=== PATIENT | female | born 1940 | race Caucasian/White ===

== ENCOUNTER → 2018-02-10 | Outpatient (CLI) | payer MEDICARE ==
--- NOTE | 2018-02-11 07:47 | Diagnostic Imaging Report ---
PROCEDURE: BONE DXA DUAL ENERGY COMPARISON:None. INDICATIONS:AGE RELATED OSTEOPORSIS FINDINGS:Evaluation of the left hip and lumbar spine was performed utilizing DEXA Hologic bone densitometer. The study is technically adequate. The patient does not have any known previous non-traumatic fractures or other risk factors. Left hip total bone mineral density: 0.611 gm/cm2, T-score is -2.7, Z-score is -0.8. Lumbar spine total bone mineral density: 0.728 gm/cm2, T-score is -3.2, Z-score is -0.6. Impression: 1. Bone mineral density of the left hip classified as osteoporosis, fracture risk is increased. 2. Bone mineral density of the lumbar spine classified as osteoporosis, fracture risk is increased. The patient's fracture risk is compared to an age-matched control. Medical evaluation for secondary causes of low bone mineral density may be appropriate. Correlate clinically for the necessity and timing of the next bone mineral density study. National Osteoporosis Foundation recommendations: Initial therapy to reduce fracture risk in postmenopausal women with -BMD t-scores below -2.0 by central DXA with no risk factors -BMD t-scores below -1.5 by central CXA with one or more risk factors (first deg relative with hip fracture, prior personalfracture, low body weight, smoking) -A prior vertebral or hip fracture AACE n(Clinical Endocrinology) recommends treating the following: Postmenopausal women who have osteoporosis as diagnosed by fragility fractures or t-score -2.5 or below. Postmenopausal women who have risk factors (including hx of hip fracture, low body weight, smoking, risk of falling, high bone turnover, advancing age) and borderline low BMD T-scores of -1.5 or below Adequate intake of calcium (at least 1200mg/day) and vitamin D (400-800IU/day). Regular weight bearing and muscle-strengthening exercises Avoid smoking and excessive alcohol Dung Norton D.O. Dictated by: Dung Norton D.O. on 02/11/2018 at 7:55 Electronically approved by: Dung Norton D.O. on 02/11/2018 at 7:55
== END ==
LOC: DX 08:02
PROVIDERS: ATTEND Family Medicine
DX: Z12.31 Encounter for screening mammogram for malignant neoplasm of breast (principal); Z13.820 Encounter for screening for osteoporosis
CPT/HCPCS: 77067; 77080

== ENCOUNTER → 2018-10-06 | Outpatient (CLI) | payer MEDICARE ==
--- NOTE | 2018-10-06 10:57 | Diagnostic Imaging Report ---
EXAMINATION: MRI of the brain without contrast. HISTORY: Frequent falls, ataxia, difficulty walking, headaches on the right side. COMPARISON: None. TECHNIQUE: Sagittal T2; axial DWI, T2, FLAIR, T1-IR, T2 gradient echo; coronal FLAIR. IMAGE QUALITY: Adequate. FINDINGS: Parenchyma: 1. Few scattered and multiple incompetent periventricular white matter T2 hyperintense foci, most likely nonspecific chronic microvascular ischemic changes. 2. No mass, hemorrhage, acute or chronic infarcts. Skull: Unremarkable. Vessels: Expected flow voids present in the major arteries and dural sinuses. Extra-axial spaces: No abnormal signal intensity or mass effect. Brain volume: Within normal limits for age, particularly no disproportionate cerebellar atrophy is seen. Ventricles: No hydrocephalus or displacement. Foramen magnum: Unremarkable. Sella: Unremarkable. Paranasal / mastoid sinuses: No significant inflammatory disease. IMPRESSION: Mild chronic microvascular ischemic changes, otherwise no intracranial abnormalities. Signed by: Dr. Veronica Bean M.D. on 10/06/2018 10:54 AM
== END ==
LOC: MRI 09:31
PROVIDERS: ATTEND Family Medicine
DX: R27.0 Ataxia, unspecified (principal)
CPT/HCPCS: 70551

== ENCOUNTER → 2018-11-01 | Outpatient (CLI) | payer MEDICARE ==
[~2018-11-01] MED LIST: DIATRIZOATE MEGL/DIATRIZOA SOD 30 ML BTL PO ONE; IOPAMIDOL 370 MG/ML 200 ML INFUS..BTL INJ ONE; SODIUM CHLORIDE 0.9% 50ML 50 ML ONE
[2018-11-01 11:20] LABS: BLOOD UREA NITROGEN 17 mg/dL (7-26); BUN/CREATININE RATIO 22 (6-25); CREATININE, SERUM 0.79 mg/dL (0.57-1.11); EST GLOMERULAR FILTRATION RATE > 60 ML/MIN (60-)
--- NOTE | 2018-11-01 12:07 | Diagnostic Imaging Report ---
EXAMINATION: CT of the abdomen and pelvis with contrast. TECHNIQUE: Spiral CT images of the abdomen and pelvis were performed from the lung bases to the lesser trochanters after the intravenous administration of 100 cc Isovue-370. Coronal and sagittal reformatted images were obtained. COMPARISON: None. CLINICAL HISTORY:Abdominal pain, constipation DISCUSSION: ABDOMEN/PELVIS: LOWER THORAX:Unremarkable. HEPATOBILIARY: Subcentimeter hypoattenuating lesion in segment 7, too small to further characterize but likely represent a small cyst. Additional lesion in segment 5, also too small to further characterize. No intrahepatic biliary ductal dilatation. The gallbladder is unremarkable. SPLEEN: No splenomegaly. PANCREAS: No focal masses or ductal dilatation. ADRENALS: No adrenal nodules. KIDNEYS/URETERS: Subcentimeter hypoattenuating lesion in the lower pole of the right kidney too small to further characterize but likely to represent a small cyst. No hydronephrosis, calculi, or gross mass lesion. PELVIC ORGANS/BLADDER: The urinary bladder is markedly distended but otherwise unremarkable. There is a 3 cm ovoid, nonenhancing fluid attenuation structure (5-10 Hounsfield units) along the right posterolateral margin of the urinary bladder. The uterus is not identified and has presumably been removed. PERITONEUM/RETROPERITONEUM: No free air or fluid. LYMPH NODES: No pelvic sidewall, retroperitoneal, or mesenteric lymphadenopathy. VESSELS: Atherosclerotic calcification of the abdominal aorta, major branch vessels, and iliac arterial systems, without aneurysmal dilatation. Portal vein, splenic vein, and central superior mesenteric vein are patent. GI TRACT: The large bowel shows no distention or wall thickening. Gas and fecal material are noted throughout the appendix is unremarkable. The stomach is collapsed with prominence of the rugal folds. No small bowel dilatation to suggest obstruction. BONES AND SOFT TISSUE: No osseous destructive lesions. Multilevel degenerative disc changes and facet arthropathy of the lumbar spine. Vertebroplasty changes of L1 with residual moderate loss of height. Small fat-containing umbilical hernia. IMPRESSION: No acute intra-abdominal or pelvic CT abnormalities. 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 Atherosclerotic vascular disease. Signed by: Dr. Jeremiah Rahman M.D. on 11/01/2018 12:04 PM
== END ==
LOC: CT 09:20
PROVIDERS: ATTEND Internal Medicine Gastroenterology
DX: R10.30 Lower abdominal pain, unspecified (principal)
CPT/HCPCS: 36415; 74177; 82565; 84520; Q9967

== ENCOUNTER → 2018-11-19 | Day surgery (SDC) | payer MEDICARE ==
[2018-11-10 15:13] LABS: BASOPHILS # (AUTO) 0.1 (0.0-0.1); BASOPHILS % 1.1 % (0.0-1.0); EOSINOPHILS # (AUTO) 0.1 (0.0-0.4); EOSINOPHILS % 2.5 % (0.0-6.0); HEMATOCRIT 35.4 % (34.2-44.1); HEMOGLOBIN 12.5 g/dL (12.0-16.0); LYMPHOCYTES # (AUTO) 2.2 (1.0-3.2); MEAN CORPUSCULAR HGB CONC 35.3 g/dL (31-35); MEAN CORPUSCULAR VOLUME 87.8 fL (81-99); MONOCYTES # (AUTO) 0.4 (0.2-0.8); MONOCYTES % 7.6 % (4.4-11.3); NEUTROPHILS # (AUTO) 2.7 (2.1-6.9); NEUTROPHILS % 49.4 % (38.7-80.0); PLATELET COUNT 397 x10e3/uL (140-360); RED BLOOD COUNT 4.03 x10e6/uL (3.6-5.1); RED CELL DISTRIBUTION WIDTH 13.1 % (11.7-14.4)
[~2018-11-19] MED LIST changes: +ALENDRONATE SOD70 MG PO; +CALTRATE-600 W1 EACH PO; +CLARITIN10 MG PO; -DIATRIZOATE MEGL/DIATRIZOA SOD 30 ML BTL PO ONE; +FENOFIBRATE145 MG PO; +FENTANYL CITRATE/PF 100MCG/2 ML INJ ONE; +FUROSEMIDE40 MG PO; +GLIMEPIRIDE2 MG PO; +HYOSCYAMINE 0.125 MG TAB ONE; -IOPAMIDOL 370 MG/ML 200 ML INFUS..BTL INJ ONE; +KETAMINE HCL INJ 50 MG/ML 10 ML VIAL ONE; +LIDOCAINE HCL 2% LOCAL INJ 5 ML SDV VIAL INJ ONE; +LOSARTAN-HCTZ1 EAC1 PO; +POTASSIUM CHLO10 MEQ PO; +PRILOSEC OTC20 MG PO; +PROPOFOL IV EMULSION 10 MG/ML 50 ML VIAL ONE; -SODIUM CHLORIDE 0.9% 50ML 50 ML ONE; +TYLENOL PO
[2018-11-19 11:12] VITALS: BP 128/58
--- NOTE | 2018-11-19 14:42 | Operative Report ---
DATE OF PROCEDURE: 11/19/2018 SURGEON: William Toscano MD PROCEDURE: Colonoscopy and polypectomy. INDICATIONS FOR COLONOSCOPY: Surveillance colonoscopy, personal history of colon polyps, constipation, rectal pain. MEDICATION: The patient was done under MAC, please see anesthesiologist's note. PROCEDURE IN DETAIL: With the patient in left lateral decubitus position, flexible fiberoptic Olympus colonoscope was inserted into the rectum with ease and advanced all the way to the cecum. One polyp was removed per cold snare from the cecum. The scope was then withdrawn slowly and mucosa overlying the ascending, transverse, and descending grossly appeared to be within normal limits. One polyp was snared from the sigmoid colon. The rectum appeared to be within normal limits. The scope was then retroflexed into the distal rectum and small internal hemorrhoids were noted, none of which was actively bleeding. The scope was then straightened out, it was subsequently withdrawn. The patient tolerated procedure well. IMPRESSION: 1. Cecal polyp, removed per cold snare polypectomy. 2. Sigmoid colon polyp, removed poor cold snare polypectomy. 3. Internal hemorrhoids, none actively bleeding. PLAN: Follow up histology. Initiate high-fiber, low-fat diet. Initiate high-fiber supplement. Start VSL#3 one p.o. daily. No followup colonoscopy is warranted in this patient. William Toscano MD [facility] [place] /[id number] cc: Reji Betancourt MD
--- OUTSIDE RECORDS SUMMARY | 2018-11-21 12:12 | XMS REPORT ---
Author Author [facility] Address Unknown Phone Unavailable Care Team Providers Care Wire Photo Operator Name Role Phone ZACKERY ORTIZ Unavailable Unavailable JOHN CHANDLER Unavailable Unavailable Payers Payer Name Policy Type Policy Number Effective Date Expiration Date Problems This patient has no known problems. Allergies, Adverse Reactions, Alerts Allergy Name Allergy Type Status Severity Reaction(s) Onset Date Inactive Date Treating Clinician Comments Penicillins DA Active U 2018-01-18 00:00:00 Cephalosporins DA Active U 2018-01-18 00:00:00 aspirin DA Active U 2018-01-18 00:00:00 Penicillins DA Active U 2016-09-18 00:00:00 Cephalosporins DA Active U 2016-09-18 00:00:00 aspirin DA Active U 2016-09-18 00:00:00 Medications This patient has no known medications. Results Test Description Test Time Test Comments Text Results Atomic Results Result Comments CT ABDOMEN/PELVIS W 2018-11-01 11:53:00 [facility] [address] [place] [address] Patient Name: DEEP VICKERS MR #: [id number] : 1940 Age/Sex: 78/F Req #: [id number] Adm Physician: Ordered by: ZACKERY ORTIZ MD Report #: [id number] Location: [place] Room/Bed: Procedure: [id number] CT/CT ABDOMEN/PELVIS W Exam Date: 11/01/18 Exam Time: 1130 REPORT STATUS: Signed EXAMINATION: CT of the abdomen and pelvis with contras t. TECHNIQUE: Spiral CT images of the abdomen and pelvis were performed from the lung bases to the lesser trochanters after the intravenous administration of 100 cc Isovue-370. Coronal and sagittal reformatted images were obtained. COMPARISON: None. CLINICAL HISTORY:Abdominal pain, constipation DISCUSSION: ABDOMEN/PELVIS: LOWER THORAX:Unremarkable. HEPATOBILIARY: Subcentimeter hypoattenuating lesion in segment 7, too small to further characterize but likely represent a small cyst. Additional lesion in segment 5, also too small to further characterize. No intrahepatic biliary ductal dilatation. The gallbladder is unremarkable. SPLEEN: No splenomegaly. PANCREAS: No focal masses or ductal dilatation. ADRENALS: No adrenal nodules. KIDNEYS/URETERS: Subcentimeter hypoattenuating lesion in the lower pole of the right kidney too small to further characterize but likely to represent a small cyst. No hydronephrosis, calculi, or gross mass lesion. PELVIC ORGANS/BLADDER: The urinary bladder is markedly distended but otherwise unremarkable. There is a 3 cm ovoid, nonenhancing fluid attenuation structure (5-10 Hounsfield units) along the right posterolateral margin of the urinary bladder. The uterus is not identified and has presumably been removed. PERITONEUM/RETROPERITONEUM: No free air or fluid. LYMPH NODES: No pelvic sidewall, retroperitoneal, or mesenteric lymphadenopathy. VESSELS: Atherosclerotic calcification of the abdominal aorta, major branch vessels, and iliac arterial systems, without aneurysmal dilatation. Portal vein, splenic vein, and central superior mesenteric vein are patent. GI TRACT: The large bowel shows no distention or wall thickening. Gas and fecal material are noted throughout the appendix is unremarkable. The stomach is collapsed with prominence of the rugal folds. No small bowel dilatation to suggest obstruction. BONES AND SOFT TISSUE: No osseous destructive lesions. Multilevel degenerative disc changes and facet arthropathy of the lumbar spine. Vertebroplasty changes of L1 with residual moderate loss of height. Small fat-containing umbilical hernia. IMPRESSION: No acute intra- abdominal or pelvic CT abnormalities. 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 Atherosclerotic vascular disease. Signed by: Dr. Landon Blackburn M.D. on 11/01/2018 12:04 PM Dictated By: LANDON BLACKBURN MD 03 Transcribed By: ANGELITO on 11/01/181203 COPY TO: ZACKERY ORTIZ MD MRI BRAIN WO 2018-10-06 10:51:00 [facility] [address] [place] [address] Patient Name: DEEP VICKERS MR #: [id number] : 1940 Age/Sex: 78/F Req #: [id number] Adm Physician: Ordered by: JOHN CHANDLER MD Report #: [id number] Location: MRI Room/Bed: Procedure: [id number] MRI/MRI BRAIN WO Exam Date: Exam Time: REPORT STATUS: Signed EXAMINATION: MRI of the brain without contrast. HISTORY: Frequent falls, ataxia, difficulty walking, headaches on the right side. COMPARISON: None. TECHNIQUE: Sagittal T2; axial DWI, T2, FLAIR, T1-IR, T2 gradient echo; coronal FLAIR. IMAGE QUALITY: Adequate. FINDINGS: Parenchyma: 1. Few scattered and multiple incompetent periventricular white matter T2 hyperintense foci, most likely nonspecific chronic microvascular ischemic changes. 2. No mass, hemorrhage, acute or chronic infarcts. Skull: Unremarkable. Vessels: Expected flow voids present in the major arteries and dural sinuses. Extra-axial spaces: No abnormal signal intensity or mass effect. Brain volume: Within normal limits for age, particularly no disproportionate cerebellar atrophy is seen. Ventricles: No hydrocephalus or displacement. Foramen magnum: Unremarkable. Sella: Unremarkable. Paranasal / mastoid sinuses: No significant inflammatory disease. IMPRESSION: Mild chronic microvascular ischemic changes, otherwise no intracranial abnormalities. Signed by: Dr. Shashi Bean M.D. on 10/06/2018 10:54 AM Dictated By: SHASHI BEAN MD 53 Transcribed By: ANGELITO on 10/06/181053 COPY TO: JOHN CHANDLER MD BONE DXA DUAL ENERGY 2018-02-11 07:55:00 [place] [address] Patient Name: DEEP VICKERS MR #: [id number] : 1940 Age/Sex: 77/F Req #: [id number] Adm Physician: Ordered by: JOHN CHANDLER MD Report #: [id number] Location: DX Room/Bed: Procedure: [id number] DX/BONE DXA DUAL ENERGY Exam Date: Exam Time: REPORT STATUS: Signed PROCEDURE: BONE DXA DUAL ENERGY COMPARISON: None. INDICATIONS: AGE RELATED OSTEOPORSIS FINDINGS: Evaluation of the left hip and lumbar spine was performed utilizing DEXA Hologic bone densitometer. The study is technically adequate. The patient does not have any known previous non-traumatic fractures or other risk factors. Left hip total bone mineral density: 0.611 gm/cm2, T-score is -2.7, Z-score is -0.8. Lumbar spine total bone mineral density: 0.728 gm/cm2, T-score is -3.2, Z- score is -0.6. Impression: 1. Bone mineral density of the left hip classified as osteoporosis, fracture risk is increased. 2. Bone mineral density of the lumbar spine classified as osteoporosis, fracture risk is increased. The patient's fracture risk is compared to an age-matched control. Medical evaluation for secondary causes of low bone mineral density may be appropriate. Correlate clinically for the necessity and timing of the next bone mineral density study. National Osteoporosis Foundation recommendations: Initial therapy to reduce fracture risk in postmenopausal women with -BMD t-scores below -2.0 by central DXA with no risk factors -BMD t-scores below -1.5 by central CXA with one or more risk factors (first deg relative with hip fracture, prior personalfracture, low body weight, smoking) -A prior vertebral or hip fracture AACE n(Clinical Endocrinology) recommends treating the following: Postmenopausal women who have osteoporosis as diagnosed by fragility fractures or t-score -2.5 or below. Postmenopausal women who have risk factors (including hx of hip fracture, low body weight, smoking, risk of falling, high bone turnover, advancing age) and borderline low BMD T- scores of -1.5 or below Adequate intake of calcium (at least 1200mg/day) and vitamin D (400-800IU/day). Regular weight bearing and muscle- strengthening exercises Avoid smoking and excessive alcohol Dung Norton D.O. Dictated by: Dung Norton D.O. on 02/11/2018 at 7:55 Electronically approved by: Dung Norton D.O. on 02/11/2018 at 7:55 Dictated By: DUNG NORTON DO 075 Transcribed By: DINA on 02/11/18 0755 COPY TO: JOHN CHANDLER MD MAMMOGRAPHY DIGITAL SCR BILAT 2018-02-10 09:28:00 [place] [address] Patient Name: DEEP VICKERS MR #: [id number] : 1940 Age/Sex: 77/F Req #: [id number] Adm Physician: Ordered by: JOHN CHANDLER MD Report #: [id number] Location: DX Room/Bed: Procedure: MG/MAMMOGRAPHY DIGITAL SCR BILAT Exam Date: 02/10/18 Exam Time: 825 REPORT STATUS: Signed #[id number] - MGSCRBIL #BILATERAL DIGITAL SCREENING MAMMOGRAM WITH CAD: 02/10/2018 CLINICAL: Routine screening. Comparison is made to exams dated: 02/11/2017 mammogram and 01/23/2016 mammogram - [facility]. Current study contains 4 films. The tissue of both breasts is predominantly fatty. Current study was also evaluated with a Computer Aided Detection (CAD) system. There are benign scattered calcifications in both breasts. No significant masses, calcifications, or other findings are seen in either breast. There has been no significant interval change. IMPRESSION: BENIGN There is no mammographic evidence of malignancy. A 1 year screening mammogram is recommended. The patient will be notified by letter of the results. Dung blake/ofe:02/11/2018 14:01:49 Inspector [employer] Detail: [place] AVILA)(M), [facility] letter sent: Compared to Prior B9 Mammogram BI-RADS: 2 Benign Dictated By: DUNG NORTON DO 1401 Transcribed By: OFE on 02/11/18 140 COPY TO: JOHN CHANDLER MD MRI RIGHT KNEE WO [place] [address] Patient Name: DEEP VICKERS MR #: [id number] : 1940 Age/Sex: 76/F Req #: [id number] Adm Physician: Ordered by: JOHN CHANDLER MD Report #: [id number] Location: MRI Room/Bed: Procedure: [id number] MRI/MRI RIGHT KNEE WO Exam Date: 03/12/17 Exam Time: 1740 REPORT STATUS: Signed TECHNIQUE: Magnetic resonance imaging of the RIGHT KNEE was performed WITHOUT injected contrast. HISTORY: Right knee pain COMPARISON: None available. FINDINGS: LIGAMENTS AND TENDONS: ACL: Intact PCL: Intact Collateral ligaments: Intact Iliotibial band: Unremarkable Popliteal tendon: Intact Extensor mechanism: Intact JOINT: Menisci: Medial: Complex tearing of the body and posterior horn with flipped fragment into the meniscotibial recess coronal image 11. Lateral: Complex tearing of the body and posterior horn Articular Cartilage: Medial Compartment: Diffuse high-grade cartilage loss Lateral Compartment: Diffuse high-grade loss with areas of full-thickness erosion and subchondral cystic change. Patellofemoral Compartment: Diffuse intermediate grade cartilage loss Joint Fluid: Moderate joint effusion with synovitis. BONE: No acute fracture. SOFT TISSUES: Otherwise, unremarkable. IMPRESSION: Tricompartmental degenerative arthrosis, lateral compartment predominant with areas of full-thickness erosion and subchondral edema/cystic change. Medial and lateral meniscus complex tearing as above. Signed by: Dr. Luis Chávez M.D. on 03/15/2017 7:28 AM Dictated By: LUIS CHÁVEZ MD 7 Transcribed By: ANGELITO on 03/15/17727 COPY TO: JOHN CHANDLER MD KNEE RIGHT THREE VIEWS [place] [address] Patient Name: DEEP VICKERS MR #: [id number] : 1940 Age/Sex: 76/F Req #: [id number] Adm Physician: Ordered by: JOHN CHANDLER MD Report #: [id number] Location: RAD Room/Bed: Procedure: [id number] DX/KNEE RIGHT THREE VIEWS Exam Date: 03/02/17 Exam Time: 1000 REPORT STATUS: Signed PROCEDURE: X-RAY RIGHT KNEE, THREE OR MORE VIEWS COMPARISON: None. INDICATIONS: KNEE PAIN, DEGENERATIVE JOINT DISEASE FINDINGS: The bones are well-mineralized. There are no fractures, subluxations, ly tic or blastic lesions. Mild degenerative changes in the medial compartment. Moderate degenerative changes in the patellofemoral compartment with endplate sclerosis and degenerative cystic changes. Mild degenerative changes in the patellofemoral compartment. Moderate suprapatellar joint effusion. CONCLUSION: Degenerative changes in the right knee with moderate degenerative changes in the lateral compartment. Dictated by: Winstno Harper M.D. on 03/02/2017 at 11:39 Electronically approved by: Winston Harper M.D. on 03/02/2017 at 11:39 Dictated By: WINSTON HARPER MD 113 Transcribed By: DINA on 03/02/17 1139 COPY TO: JOHN CHANDLER MD MAMMOGRAPHY DIGITAL [place] [address] Patient Name: DEEP VICKERS MR #: [id number] : 1940 Age/Sex: 76/F Req #: [id number] Adm Physician: Ordered by: JOHN CHANDLER MD Report #: [id number] Location: MAMMO Room/Bed: Procedure: [id number] MG/MAMMOGRAPHY DIGITAL SCR BILAT Exam Date: 02/11/17 Exam Time: 0955 REPORT STATUS: Signed #[id number] - MGSCRBIL #BILATERAL DIGITAL SCREENING MAMMOGRAM WITH CAD: 02/11/2017 CLINICAL: Routine screening. Comparison is made to exams dated: 01/23/2016 mammogram, 10/05/2014 mammogram and 09/26/2013 mammogram - [facility]. Current study contains 4 films. The tissue of both breasts is predominantly fatty. Current study was also evaluated with a Computer Aided Detection (CAD) system. There are benign scattered calcifications in both breasts. No significant masses, calcifications, or other findings are seen in either breast. There has been no significant interval change. IMPRESSION: BENIGN There is no mammographic evidence of malignancy. A 1 year screening mammogram is recommended. The patient will be notified by letter of the results. Dung blake/ofe:02/26/2017 08:13:15 Inspector [employer] Detail: [place](R)(M), [facility] letter sent: Compared to Prior B9 Mammogram BI-RADS: 2 Benign Dictated By: DUNG NORTON DO 2 Transcribed By: OFE on 02/26/17812 COPY TO: JOHN CHANDLER MD
== END | disposition home or self-care (01) ==
LOC: OR 06:18
PROVIDERS: ATTEND Internal Medicine Gastroenterology
DX: K59.00 Constipation, unspecified (principal); K63.5 Polyp of colon; K64.8 Other hemorrhoids; K62.89 Other specified diseases of anus and rectum; E11.9 Type 2 diabetes mellitus without complications; I10 Essential (primary) hypertension; M81.0 Age-related osteoporosis without current pathological fracture; Z88.6 Allergy status to analgesic agent; Z88.1 Allergy status to other antibiotic agents; Z01.810 Encounter for preprocedural cardiovascular examination; Z01.812 Encounter for preprocedural laboratory examination; Z79.84 Long term (current) use of oral hypoglycemic drugs; Z68.30 Body mass index [BMI] 30.0-30.9, adult; Z96.653 Presence of artificial knee joint, bilateral
CPT/HCPCS: 36415 ×2; 45385; 82948; 85025; 93005; J2001; J2704; J3010

== ENCOUNTER → 2019-01-04 | Outpatient (CLI) | payer MEDICARE ==
[~2019-01-04] MED LIST changes: -FENTANYL CITRATE/PF 100MCG/2 ML INJ ONE; -HYOSCYAMINE 0.125 MG TAB ONE; -KETAMINE HCL INJ 50 MG/ML 10 ML VIAL ONE; -LIDOCAINE HCL 2% LOCAL INJ 5 ML SDV VIAL INJ ONE; -PROPOFOL IV EMULSION 10 MG/ML 50 ML VIAL ONE
--- NOTE | 2019-01-04 14:58 | Diagnostic Imaging Report ---
EXAMINATION: MRI of the lumbar spine without contrast HISTORY: Low back pain since prior procedure COMPARISON: Abdomen CT 11/01/2018 and lumbar spine MRI 09/04/2016 TECHNIQUE: Sagittal T1, T2, STIR; axial T2 and proton density. FINDINGS: It is assumed that there are 5 lumbar vertebrae. Curvature/Alignment: Mild thoracolumbar kyphosis. Vertebrae: Status post percutaneous vertebral cement injection for treatment of L1 compression fracture. Stable decreased vertebral body height centrally by approximately 50%, also unchanged minimal approximately 1 mm posterior retropulsion of the superior endplate as well as lateral displacement. Conus: Normal, terminating at L1-L2 Cauda equina: Unremarkable. Lower thoracic: Unremarkable. Paraspinal soft tissues: Mild posterior paraspinal musculature atrophy. Degenerative changes: L1-L2: Mild symmetric disc bulge and facet arthrosis. Persistent mild to moderate left foraminal stenosis. L2-L3: Minimal symmetric disc bulge and facet arthrosis without significant stenoses. L3-L4: Minimal disc bulge and facet necrosis without stenosis. L4-L5: Mild disc bulge, moderate facet arthrosis. Mild ligamenta flava thickening. Minimal anterolisthesis. Mild spinal canal stenosis. L5-S1: Mild symmetric disc bulge and facet arthrosis. Minimal anterolisthesis. No stenosis. Sacroiliac joints: Mild degenerative changes mainly on the left. IMPRESSION: 1. Again noted status post percutaneous cement injection of L1 compression fracture, unchanged compared to abdomen CT of 10/30/2018. No new acute fractures. 2. Mild degenerative canal stenosis at L4-5. 3. Minimal degenerative anterolisthesis at L4-L5 and L5-S1 due to facet arthrosis otherwise without significant canal or foraminal stenosis. Signed by: Dr. Veronica Bean M.D. on 01/04/2019 2:55 PM
== END ==
LOC: MRI 10:31
PROVIDERS: ATTEND Family Medicine
DX: M54.16 Radiculopathy, lumbar region (principal)
CPT/HCPCS: 72148

== ENCOUNTER → 2019-02-01 | Outpatient (CLI) | payer MEDICARE ==
--- NOTE | 2019-02-03 09:41 | Diagnostic Imaging Report ---
#[id number] - MGSCRBIL #BILATERAL DIGITAL SCREENING MAMMOGRAM WITH CAD: 02/01/2019 CLINICAL: Routine screening. Comparison is made to exams dated: 02/10/2018 mammogram and 01/23/2016 mammogram - [facility]. Current study contains 4 films. The tissue of both breasts is predominantly fatty. Current study was also evaluated with a Computer Aided Detection (CAD) system. Benign appearing calcifications are noted bilaterally. No significant masses, calcifications, or other findings are seen in either breast. IMPRESSION: BENIGN There is no mammographic evidence of malignancy. A 1 year screening mammogram is recommended. The patient will be notified by letter of the results. KERRY JARAMILLO M.D. ct/penrad:02/02/2019 09:38:38 Marketing Analytics Specialist: [place](R)(M), [facility] letter sent: Normal Exam Mammogram BI-RADS: 2 Benign
== END ==
LOC: MAMMO 09:54
PROVIDERS: ATTEND Family Medicine
DX: Z12.31 Encounter for screening mammogram for malignant neoplasm of breast (principal)
CPT/HCPCS: 77067

== ENCOUNTER → 2019-10-05 | Day surgery (SDC) | payer MEDICARE, OTHER ==
[2019-10-02 13:55] LABS: BASOPHILS # (AUTO) 0.1 (0.0-0.1); BASOPHILS % 0.9 % (0.0-1.0); EOSINOPHILS # (AUTO) 0.1 (0.0-0.4); EOSINOPHILS % 0.9 % (0.0-6.0); HEMATOCRIT 35.1 % (34.2-44.1); HEMOGLOBIN 12.1 g/dL (12.0-16.0); LYMPHOCYTES # (AUTO) 2.2 (1.0-3.2); LYMPHOCYTES % 32.2 % (18.0-39.1); MEAN CORPUSCULAR HEMOGLOBIN 30.5 pg (28-32); MEAN CORPUSCULAR HGB CONC 34.5 g/dL (31-35); MEAN CORPUSCULAR VOLUME 88.4 fL (81-99); MONOCYTES # (AUTO) 0.5 (0.2-0.8); MONOCYTES % 7.2 % (4.4-11.3); NEUTROPHILS # (AUTO) 3.9 (2.1-6.9); NEUTROPHILS % 58.4 % (38.7-80.0); PLATELET COUNT 371 x10e3/uL (140-360); RED BLOOD COUNT 3.97 x10e6/uL (3.6-5.1); RED CELL DISTRIBUTION WIDTH 12.2 % (11.7-14.4)
--- NOTE | 2019-10-02 14:00 | Diagnostic Imaging Report ---
Chest, 2 views, 10/02/2019. History: Preop, lobe region surgery. Comparison: None available. Findings: The cardiomediastinal silhouette and pulmonary vasculature are within normal limits. The lungs are clear without evidence of consolidation or pleural effusion. Degenerative changes are present in the thoracic spine. Surgical hardware is present in the lower cervical spine. Vertebral body cement augmentation is noted in the lumbar spine. There are no acute osseous or soft tissue abnormalities. Impression: No acute cardiopulmonary abnormality. Signed by: Ashutosh Sargent on 10/02/2019 1:57 PM
[2019-10-02 14:13] LABS: ANION GAP 14.4 mmol/L (8-16); BLOOD UREA NITROGEN 18 mg/dL (7-26); BUN/CREATININE RATIO 23 (6-25); CALCIUM 10.4 mg/dL (8.4-10.2); CARBON DIOXIDE 24 mmol/L (22-29); CHLORIDE 95 mmol/L (98-107); CREATININE, SERUM 0.78 mg/dL (0.57-1.11); EST GLOMERULAR FILTRATION RATE > 60 ML/MIN (60-); GLUCOSE 116 mg/dL (74-118); POTASSIUM 4.4 mmol/L (3.5-5.1); SODIUM 129 mmol/L (136-145)
[~2019-10-05] MED LIST changes: +ACETAMINOPHEN 1000 MG/100 ML 100 ML IV ONE; +B COMPLEX1 EACH PO; +BUPIVACAINE 0.5%/EPI 30 ML SDV INJ ONE; +CLINDAMYCIN PHOS 900MG/ 50ML 50 ML IV ONE; +COQ1050 MG PO; +DEXAMETHASONE SOD PHOS INJ 4 MG/ML VIAL ONE; +ESTROGENS CONJUGATED VAGINAL CR 45 GM TUBE PV ONE; +ETOMIDATE 2 MG/ML 10 ML INJ IV ONE; +FENTANYL CITRATE/PF 100MCG/2 ML INJ ONE; +HYDRALAZINE HCL 20 MG/ML VIAL ONE; +LIDOCAINE HCL 2% LOCAL INJ 5 ML SDV VIAL INJ ONE; +ONDANSETRON HCL INJ 2MG/ML 2ML 2 MG/ML VIAL ONE; +PAROXETINE HCL10 MG PO; +PROBIOTIC & AC1 EACH PO; +ROCURONIUM BROMIDE 10 MG/ML 5ML VIAL IV ONE; +SEVOFLURANE INHAL SOLN 250 ML PEN BTL ONE; +SUGAMMADEX SODIUM 200 MG/2 ML VIAL IV ONE
[2019-10-05 11:34] LABS: ANION GAP 13.7 mmol/L (8-16); BLOOD UREA NITROGEN 16 mg/dL (7-26); BUN/CREATININE RATIO 21 (6-25); CALCIUM 9.6 mg/dL (8.4-10.2); CARBON DIOXIDE 22 mmol/L (22-29); CHLORIDE 97 mmol/L (98-107); CREATININE, SERUM 0.75 mg/dL (0.57-1.11); EST GLOMERULAR FILTRATION RATE > 60 ML/MIN (60-); GLUCOSE 81 mg/dL (74-118); POTASSIUM 3.7 mmol/L (3.5-5.1); SODIUM 129 mmol/L (136-145)
[2019-10-05 14:50] VITALS: BP 156/98
--- NOTE | 2019-10-05 19:34 | Operative Report ---
DATE OF PROCEDURE: SURGEON: Chacha Allison MD PREOPERATIVE DIAGNOSIS: Cystocele. POSTOPERATIVE DIAGNOSIS: Cystocele. PROCEDURE: Anterior repair. COMPLICATIONS: None. ESTIMATED BLOOD LOSS: Minimal. DESCRIPTION OF PROCEDURE: The patient was taken to the OR. General anesthesia was induced. She was prepped and draped in a normal sterile fashion, placed in dorsal lithotomy position. After examination under anesthesia, third-degree cystocele was noted. Weighted speculum was placed inside the vagina and the anterior wall of the vagina was injected with Marcaine with epinephrine 0.25% about 20 mL was injected. Two Allis clamps were applied to the vagina close to the vaginal fold and transverse skin incision was made with a scalpel between the two Allis clamp and the subvaginal tissue was dissected anteriorly off the bladder using Metzenbaum scissors and using the push spread technique. The anterior vagina was opened in the midline. Two flaps of the vagina were dissected off the underlying bladder using both sharp and blunt dissection. The pubocervical ligaments on each side of the pelvis were approximated using Vicryl 0 stitches and excess vaginal skin was trimmed off using curved Rodriguez scissors. The vagina was closed with interlocking sutures of Vicryl 0. Muniz catheter was inserted and showed clear urine and vaginal pack was inserted. The patient tolerated the procedure well. Lap, instruments, and needle counts were correct x2 at the end of the procedure. Chacha Allison MD DD/MODL /[id number]
== END | disposition home or self-care (01) ==
LOC: OR 09:27
PROVIDERS: ATTEND Obstetrics & Gynecology
DX: N81.12 Cystocele, lateral (principal); I10 Essential (primary) hypertension; E11.9 Type 2 diabetes mellitus without complications; F32.9 Major depressive disorder, single episode, unspecified; Z88.6 Allergy status to analgesic agent; Z88.0 Allergy status to penicillin; Z01.810 Encounter for preprocedural cardiovascular examination; Z01.812 Encounter for preprocedural laboratory examination; Z01.818 Encounter for other preprocedural examination; Z11.59 Encounter for screening for other viral diseases; Z79.84 Long term (current) use of oral hypoglycemic drugs
CPT/HCPCS: 36415 ×2; 57240; 71046; 80048 ×2; 82948; 85025; 87635; 93005; J0131; J0360; J1100; J2001; J2405; J3010

== ENCOUNTER → 2020-02-29 | Outpatient (CLI) | payer MEDICARE ==
[~2020-02-29] MED LIST changes: -ACETAMINOPHEN 1000 MG/100 ML 100 ML IV ONE; -BUPIVACAINE 0.5%/EPI 30 ML SDV INJ ONE; -CLINDAMYCIN PHOS 900MG/ 50ML 50 ML IV ONE; -DEXAMETHASONE SOD PHOS INJ 4 MG/ML VIAL ONE; -ESTROGENS CONJUGATED VAGINAL CR 45 GM TUBE PV ONE; -ETOMIDATE 2 MG/ML 10 ML INJ IV ONE; -FENTANYL CITRATE/PF 100MCG/2 ML INJ ONE; -HYDRALAZINE HCL 20 MG/ML VIAL ONE; -LIDOCAINE HCL 2% LOCAL INJ 5 ML SDV VIAL INJ ONE; -ONDANSETRON HCL INJ 2MG/ML 2ML 2 MG/ML VIAL ONE; -ROCURONIUM BROMIDE 10 MG/ML 5ML VIAL IV ONE; -SEVOFLURANE INHAL SOLN 250 ML PEN BTL ONE; -SUGAMMADEX SODIUM 200 MG/2 ML VIAL IV ONE
== END ==
LOC: MAMMO 14:57
PROVIDERS: ATTEND Obstetrics & Gynecology
DX: Z12.31 Encounter for screening mammogram for malignant neoplasm of breast (principal)
CPT/HCPCS: 77067

== ENCOUNTER → 2020-09-03 | Outpatient (CLI) | payer MEDICARE | LOC: RAD 11:54 | PROVIDERS: ATTEND Family Medicine | DX: M54.6 Pain in thoracic spine (principal); M54.5 Low back pain | CPT/HCPCS: 72070; 72110 ==

== ENCOUNTER → 2020-09-16 | Outpatient (CLI) | payer MEDICARE | LOC: MRI 10:11 | PROVIDERS: ATTEND Family Medicine | DX: M54.40 Lumbago with sciatica, unspecified side (principal) | CPT/HCPCS: 72148 ==

== ENCOUNTER → 2020-09-30 | Outpatient (CLI) | payer MEDICARE | LOC: US 10:24 | PROVIDERS: ATTEND Family Medicine | DX: R19.00 Intra-abdominal and pelvic swelling, mass and lump, unspecified site (principal) | CPT/HCPCS: 76856 ==